=== PATIENT | male | born 1995 | race Caucasian/White ===

== ENCOUNTER 2018-07-30 23:02 | Emergency (ER) | payer OTHER ==
[~2018-07-30] VITALS: Ht 175.3 cm; Wt 79.4 kg
[2018-07-30 23:05] VITALS: BP 107/58
== END 2018-07-30 23:31 ==
LOC: ER 23:06
DX: Z02.89 Encounter for other administrative examinations (principal); F11.10 Opioid abuse, uncomplicated
CPT/HCPCS: A4606; Z7610